=== PATIENT | male | born 1945 | race Caucasian/White ===

== ENCOUNTER 2016-10-05 12:02 | Outpatient (CLI) | payer OTHER | END 2016-10-05 12:03 | disposition critical access hospital (66) | LOC: EMS 12:02 | PROVIDERS: ATTEND Surgery | DX: R53.1 Weakness (principal); R29.810 Facial weakness; R47.81 Slurred speech | CPT/HCPCS: A0425; A0429 ==

== ENCOUNTER 2016-10-05 12:13 | Inpatient (IN) | payer OTHER, MEDICARE ==
--- NOTE | 2016-10-05 12:23 | ED Physician Documentation ---
PD HPI FOCAL NEURO - Stated complaint Stated Complaint: AMS - Chief complaint Chief Complaint: Neuro - History obtained from History obtained from: Patient, EMS - History of Present Illness Timing - onset: Other (He woke up at 5 a.m. unable to use the right arm. He went to bed okay around 10 p.m. It is not associated with a headache. He is right-handed. He is healthy otherwise with no history of heart or neurologic problem, he does not take aspirin. He doesn't take any medications. He is able to walk with assistance at this juncture.) Review of Systems Ten Systems: 10 systems reviewed and negative Constitutional: denies: Fever, Chills Eyes: denies: Loss of vision, Decreased vision Throat: denies: Dental pain / toothache, Sore throat Cardiac: denies: Chest pain / pressure, Palpitations Respiratory: denies: Dyspnea PD PAST MEDICAL HISTORY - Past Medical History Past Medical History: No - Present Medications Home Medications: Ambulatory Orders Medication Instructions Recorded Confirmed No Known Home Medications [No 10/05/16 10/05/16 Known Home Medications] - Allergies Allergies/Adverse Reactions: Allergies Allergy/AdvReac Type Severity Reaction Status Date / Time No Known Drug Allergies Allergy Verified 10/05/16 12:16 - Living Situation Living Arrangement: reports: At home - Social History Does the pt smoke?: Yes Does the pt drink ETOH?: No Does the pt have substance abuse?: No - Family History Family history: reports: Non contributory PD ED PE NORMAL - Vitals Vital signs reviewed: Yes - General General: Alert and oriented X 3, No acute distress - HEENT HEENT: PERRL, EOMI - Neck Neck: Supple, no meningeal sign, No bony TTP - Cardiac Cardiac: RRR, No murmur - Respiratory Respiratory: No respiratory distress, Clear bilaterally - Abdomen Abdomen: Soft, Non tender - Back Back: No CVA TTP, No spinal TTP - Derm Derm: Normal color, Warm and dry - Extremities Extremities: No edema, No calf tenderness / cord - Neuro Neuro: Alert and oriented X 3, Normal speech - Psych Psych: Normal mood, Normal affect NIHSS - Time Time: 12:17 - Level of Consciousness Level of consciousness: (0) Alert, Keenly responsive LOC Questions: (0) Answers both Q's correct LOC Commands: (0) Performs both correctly - Gaze Best Gaze: (0) Normal - Visual Visual: (0) No loss - Facial Palsy Facial Palsy: (2) Partial paralysis - Motor Arms (both separate) Motor Arm (right): (4) No movement Motor Arm (left): (0) No drift - Motor Legs (both separate) Motor Leg (right): (0) No drift Motor Leg (left): (0) No drift - Limb Ataxia Limb Ataxia: (0) Absent - Sensory Sensory: (1) Wxlf-kv-hnuuspki loss - Best Language Best Language: (0) No aphasia - Dysarthria Dysarthria: (1) Gwmb-ex-vwbrgwvd dysarthria - Extinction and Inattention (formally neg Extinction and inattention: (0) No abnormality - Total Score/Results Total Score/Result: 8 Results - Vitals Vitals: Vital Signs - 24 hr 10/05/16 10/05/16 12:15 13:08 Temperature 37.2 C Heart Rate 73 72 Respiratory 18 18 Rate Blood Pressure 158/92 H 148/86 H O2 Saturation 98 98 Oxygen O2 Source Room air - EKG (time done) 1220 Rate: Rate (enter#) (67) Rhythm: NSR Jerome: Normal Intervals: Normal ME QRS: Normal Ischemia: Normal ST segments Computer interpretation: Agree with computer - Labs Labs: Laboratory Tests 10/05/16 10/05/16 10/05/16 12:19 12:19 12:19 WBC 6.5 RBC 4.71 Hgb 14.7 Hct 43.5 MCV 92.3 MCH 31.1 H MCHC 33.7 RDW 13.9 Plt Count 226 MPV 7.8 Neut # 4.4 Lymph # 1.6 Metcalfe # 0.4 Eos # 0.0 Baso # 0.1 Absolute Nucleated RBC 0.00 Nucleated RBCs 0.0 PT 11.6 INR 1.0 Sodium 138 Potassium 4.3 Chloride 107 Carbon Dioxide 25 Anion Gap 6.0 BUN 17 Creatinine 0.8 Estimated GFR (MDRD) 96 Glucose 105 H Calcium 8.6 Total Bilirubin 0.3 AST 18 ALT 14 Alkaline Phosphatase 73 Total Protein 6.6 L Albumin 3.8 Globulin 2.8 Albumin/Globulin Ratio 1.4 Lipase 21 L PD MEDICAL DECISION MAKING - ED course ED course: 70-year-old gentleman presents with a stroke, and a stroke scale as shown, initially reported to started at 5 a.m. The family later reported that maybe he was using his right arm at 8, but they weren't 100% sure about that. Either way he is not a TPA candidate because last known normal was not definitively less than [address] was grossly negative for acute changes. Spoke with Dr. Manriquez for admission at 130 p.m. He was administered aspirin. Departure - Departure Disposition: ED Place in Observation Clinical Impression: Cerebrovascular accident (CVA) Qualifiers: CVA mechanism: unspecified Qualified Code(s): I63.9 - Cerebral infarction, unspecified Condition: Stable
[2016-10-05 12:38] LABS: BASOPHILS # (AUTO) 0.1 10^3/uL (0.0-0.1); EOSINOPHILS % (AUTO) 0.5 %; HCT - HEMATOCRIT 43.5 % (42.0-52.0); HGB - HEMOGLOBIN 14.7 g/dL (14.0-18.0); LYMPHOCYTES # (AUTO) 1.6 10^3/uL (1.5-3.5); LYMPHOCYTES % (AUTO) 24.8 %; MEAN CORPUSCULAR HEMOGLOBIN 31.1 pg (27.0-31.0); MEAN CORPUSCULAR HGB CONC 33.7 g/dL (32.0-36.0); MEAN CORPUSCULAR VOLUME 92.3 fL (80.0-94.0); MEAN PLATELET VOLUME 7.8 fL (7.4-11.4); MONOCYTES # (AUTO) 0.4 10^3/uL (0.0-1.0); MONOCYTES % (AUTO) 5.6 %; NEUTROPHILS # (AUTO) 4.4 10^3/uL (1.5-6.6); NEUTROPHILS % (AUTO) 68.1 %; RED BLOOD COUNT 4.71 10^6/uL (4.70-6.10); RED CELL DISTRIBUTION WIDTH 13.9 % (12.0-15.0); UNCORRECTED WHITE BLOOD COUNT 6.5 x10^3/uL; WHITE BLOOD COUNT 6.5 x10^3/uL (4.8-10.8)
[2016-10-05 12:47] LABS: PT - PROTHROMBIN TIME 11.6 secs (9.9-12.6)
[2016-10-05 12:52] LABS: ALBUMIN/GLOBULIN RATIO 1.4 (1.0-2.2); BILIRUBIN,TOTAL 0.3 mg/dL (0.2-1.0); CALCIUM 8.6 mg/dL (8.5-10.3); CREATININE 0.8 mg/dL (0.6-1.2); POTASSIUM 4.3 mmol/L (3.5-5.0); TOTAL PROTEIN 6.6 g/dL (6.7-8.2)
--- NOTE | 2016-10-05 13:20 | CT Preliminary Report ---
Exam: CT Head W/O Impression: No evidence of an intracranial hemorrhage. Calcification in the right frontal lobe. Decreased density in the periventricular white matter that is nonspecific but most likely represents ischemic changes. Atherosclerosis of the internal carotid and vertebral arteries. [facility] SITE ID: [id number]
--- NOTE | 2016-10-05 13:23 | CT Report ---
EXAM: CT HEAD EXAM DATE: 10/05/2016 12:40 PM. CLINICAL HISTORY: CVA with RUE defecit. COMPARISON: None. TECHNIQUE: Multiaxial CT images were obtained from the foramen magnum to the vertex. IV contrast: Non e. Reformats: Coronal. In accordance with CT protocol optimization, one or more of the following dose reduction techniques w ere utilized for this exam: automated exposure control, adjustment of mA and/or KV based on patient s ize, or use of iterative reconstructive technique. FINDINGS: The ventricles and cortical sulci are normal in appearance. Calcifications are noted within the right frontal lobe (image 16 of series 3). Decreased density is seen in the periventricular white matter t hat is nonspecific but most likely represents ischemic changes. There is no evidence of an intraparen chymal hemorrhage or extra-axial fluid collection. There is atherosclerosis of the internal carotid a nd vertebral arteries. Orbits are symmetric. No depressed skull fracture is seen. The visualized mastoid air cells and paranasal sinuses are clear . Impression: No evidence of an intracranial hemorrhage. Calcification in the right frontal lobe. Decreased density in the periventricular white matter that is nonspecific but most likely represents ischemic changes. Atherosclerosis of the internal carotid and vertebral arteries. [facility] Referring Provider Line: [phone] SITE ID: [id number]
[2016-10-05] MEDS ORDERED: ASPIRIN CHEW 81 MG TABLET PO STA (13:28)
[2016-10-05] MEDS ORDERED: ASPIRIN CHEW 81 MG TABLET ONE (13:30)
[2016-10-05] MEDS ORDERED: MORPHINE 2 MG/ML SYRINGE IVP PRN ×2 (13:38→14:49)
[2016-10-05] MEDS ORDERED: LABETALOL 20 MG/4 ML SYRINGE IVP PRN ×2 (13:38→14:49)
[2016-10-05] MEDS ORDERED: SODIUM CHLORIDE FLUSH 0.9% 10 ML SYRINGE IVP PRN ×2 (13:38→14:49)
[2016-10-05] MEDS ORDERED: HYDROcod/ACETAM 5/325 MG TABLET PO PRN ×2 (13:38→14:49)
[2016-10-05] MEDS ORDERED: PROCHLORPERAZINE 10 MG/2 ML VIAL IVP PRN ×2 (13:38→14:49)
[2016-10-05] MEDS ORDERED: ACETAMINOPHEN 325 MG TABLET PO PRN ×2 (13:38→14:49)
[2016-10-05] MEDS ORDERED: ONDANSETRON 4 MG/2 ML VIAL IVP PRN ×2 (13:38→14:49)
[2016-10-05] MEDS ORDERED: SODIUM CHLORIDE FLUSH 0.9% 10 ML SYRINGE IVP SCH (14:00)
[2016-10-05] MEDS ORDERED: SODIUM CHLORIDE 0.9% 1,000 ML IV SCH (14:00)
--- NOTE | 2016-10-05 15:30 | HISTORY & PHYSICAL EXAMINATION ---
Chief Complaint - Chief Complaint Chief Complaint: Right arm weakness History of Present Illness - Admitted From Admitted From:: emergency department - History Obtained From Records Reviewed: yes History obtained from: patient and family Exam Limitations: none - History of Present Illness HPI Comment/Other: Patient is a 70-year-old gentleman with a past medical history significant for borderline diabetes, vitamin D deficiency, cataracts and tobacco abuse who presents to the emergency department with a chief complaint of right arm weakness. The patient states he was in his normal state of health when he went to bed last night. He states he got up this morning at around 5 AM, he states that he had slept on his right arm and felt as though it was numb. He states he got up to go to the bathroom and got about half way to the bathroom when he lost his balance and fell to the floor. He states he was able to get up and go crawl back into the bed. The patient's daughter states that she saw the patient at 8 AM after she got back from work and she states that he was stretching his arms but when she said good morning he just gave her blank stare. The patient's states that she went to wake up the patient at around 10:30. She states he was sitting in the bed and just staring off she noted that he could not move his right arm and had an obvious right facial droop at that point she decided to call 911 if she was concerned he was having a stroke. When the patient tried to get up he was favoring his right side and fell again towards his right side. The patient otherwise denies any fevers or chills, he denies any headache, he denies blurred vision, denies any runny nose, sore throat, cough, nasal congestion, chest durga,n shortness of breath, abdominal pain, nausea, vomiting, diarrhea or constipation, he denies any urinary urgency, frequency or dysuria he also denies any back pain or muscle aches. On presentation to the emergency department the patient was afebrile slightly hypertensive otherwise vital signs are within normal limits. The patient underwent routine labs his CBC was normal and electrolyte are within normal limits. The patient's EKG showed normal sinus rhythm with no ST elevations or ischemic changes. Patient's CT head showed no evidence of acute intracranial hemorrhage there was calcification in the right frontal lobe and decreased density in the periventricular white matter that is nonspecific but most likely represents ischemic changes. The patient was placed in observation for a likely stroke and possible TIA he will get an MRI to confirm whether he's had a stroke. Review of Systems - Constitutional Constitutional: denies: Fatigue, Fever, Chills, Malaise, Weakness, Poor appetite , Diaphoresis, Night sweats, Weight gain, Weight loss, Other - Eyes Eyes: denies: Pain, Irritation, Amaurosis, Blurred vision, Spots in vision, Field loss, Vision loss, Dipolpia, Corrective lenses, Other - Ears, Nose & Throat Ears, Nose & Throat: denies: Ear pain, Hearing loss, Hearing aids, Tinnitus, Vertigo, Nasal pain, Nasal discharge, Nosebleeds, Nasal obstruction, Nasal congestion, Postnasal drainage, Dentures, Sore throat, Hoarseness, Mouth lesions , Bleeding gums, Dental decay, Dental pain, Other - Cardiovascular Cariovascular: denies: Irregular heart rate, Palpitations, Chest pain, Edema, Lightheadedness, Syncope, Exertional dyspnea, Decr. exercise tolerance, Orthopnea, Other - Respiratory Respiratory: denies: Cough, Sputum production, Wheezing, Snoring, Hemoptysis, Orthopnea, SOB at rest, SOB with exertion, Apnea, Stridor, Pleuritic pain, Other - Gastrointestinal Gastrointestinal: denies: Abdominal pain, Abdominal distention, Constipation, Diarrhea, Change in bowel habits, Rectal bleeding, Black stools, Bloody stools, Nausea, Vomiting, Bile emesis, Alex blood emesis, Coffee grounds emesis, Reflux /heartburn, Bloating, Poor appetite, Other - Genitourinary Genitourinary: denies: Dysuria, Frequency, Urgency, Hematuria, Incontinence, Flank pain, Nocturia, Urethral discharge, Sexual dysfunction, Other - Musculoskeletal Musculoskeletal: denies: Muscle pain, Back pain, Muscle aches, Stiffness, Limited range of motion, Muscle weakness, Gout, Joint pain, Joint swelling, Other - Integumentary Integumentary: denies: Rash, Pruritis, Lesions, Dryness, Lumps, Acne, Pigment changes, Nail changes, Hair changes, Other - Neurological Neurological: reports: Focal weakness (right upper extremity paralysis and right lower extremity weakness), Numbness, Abnormal gait, Slurred speech. denies: General weakness, Headache, Dizziness, Memory problems, Seizures, Incoordination - Psychiatric Psychiatric: denies: Depression, Anxiety, Suicidal, Delusions, Hallucinations, Homicidal, Other - Hematologic/Lymphatic Hematologic/Lymphatic: denies: Anemia, Bruising, Petechiae, Blood clots, Lymphadenopathy, Bleeding tendencies, Recurrent infections, Other History - Past Medical History Cardiovascular: reports: None Respiratory: reports: None Neuro: reports: TIA Endocrine/Autoimmune: reports: Type 2 diabetes (Borderline ) GI: reports: None : reports: None HEENT: reports: Other (Cataracts) Psych: reports: None Musculoskeletal: reports: Other (Vitamin D Deficiency) Derm: reports: None MRSA Hx?: No Other Past Medical History: Tobacco Abuse - Family & Social History Family History: Mother: CVA/TIA ( at 83 of stroke), Father: Cancer (Liver) Living arrangement: At home Living Situation: With spouse/s.o. 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 He sends most of the year in [place] but his lives here on [facility] and he is back now for repair of cataracts on Wednesday. He has 3 bilogical kids and 6 step kids. He has been to his current for 20 years. - Substance History Use: Uses substance without health or social issues: Alcohol (Ocassional ) Abuse: Recurrent use of substance despite neg consequences: NONE Dependence: Experiences withdrawal or developed tolerances: Tobacco (1PPD for nearly 60 years) Tobacco Details: Cigarettes - POLST Patient has POLST: No POLST Status: DNR Meds/Allgy - Home Medications Home Medications: Ambulatory Orders Medication Instructions Recorded Confirmed No Known Home Medications [No 10/05/16 10/05/16 Known Home Medications] - Allergies Allergies/Adverse Reactions: Allergies Allergy/AdvReac Type Severity Reaction Status Date / Time No Known Drug Allergies Allergy Verified 10/05/16 12:16 Exam - Vital Signs Reviewed Vital Signs: Yes Vital Signs: Vital Signs x48h Temp Pulse Pulse Resp BP BP Pulse Ox 10/05/16 14:00 36.6 C 66 17 159/79 H 97 10/05/16 13:08 72 18 148/86 H 98 10/05/16 12:15 37.2 C 73 18 158/92 H 98 - Physical Exam General Appearance: positive: Alert, Other (Right facial droop and right arm paralysis, a lot of wrinkles) Eyes Bilateral: positive: Normal inspection, PERRL, EOMI, No lid inflammation, Conjunctivae nml, No scleral icterus ENT: positive: ENT inspection nml, Pharynx nml, No signs of dehydration, Other ( Right facial droop). negative: Purulent nasal drainage, Pharyngeal erythema, Oral lesions Neck: positive: Nml inspection, Thyroid nml, No JVD, Trachea midline. negative : Thyromegaly, Lymphadenopathy (R), Lymphadenopathy (L) Respiratory: positive: Chest non-tender, No respiratory distress, Breath sounds nml. negative: Wheezes, Rales, Rhonchi Cardiovascular: positive: Regular rate & rhythm, No murmur, No gallop Peripheral Pulses: positive: 2+ Abdomen: positive: Non-tender, No organomegaly, Nml bowel sounds, No distention. negative: Guarding, Rebound, Hepatomegaly Back: positive: Nml inspection. negative: CVA tenderness (R), CVA tenderness (L ) Skin: positive: Color nml, No rash, Warm, Other (A lot of wrinkles) Extremities: positive: Non-tender, Nml appearance, No pedal edema Neurologic/Psychiatric: positive: Oriented x3, Sensation nml, Mood/affect nml, Weakness (Right arm 0/5 strength, Hand 0/5 strength, right leg 3/5 strength, right foot 2/5 strength), Facial droop (Right mouth, assymetric smile with severe droop), Slurred/abnml speech (slurred) Conclusion/Plan - Problem List (1) Cerebrovascular accident (CVA) Conclusion/Plan: Patient presented with right sided weakness worse in the upper extremity than lower extremity and right facial droop. Patient woke up with symptoms therefore not eligible for TPA Patients risk factors were smoking and borderline diabetes Patient given ASA in the ED CT head negative for bleed Admitted for stroke will likely need inpatient stroke rehab Patient counselled on need to quit smoking Plan: Permissive Hypertension Swallow evaluation Aspirin Lipitor MRA head and neck MRI brain Echo HbA1C Lipid profile Tele Neurochecks PT eval Qualifiers: CVA mechanism: unspecified Qualified Code(s): I63.9 - Cerebral infarction, unspecified (2) Tobacco abuse Conclusion/Plan: Patient counselled on need to quit smoking States he currently has no cravings Offered nicotine patch but declined 1PPD for nearly 60 years Patient committed to quitting (3) Borderline diabetes Conclusion/Plan: Patient has been told he has borderline diabetes Blood glucose on presentation is 105 Will get A1C if elevated start on sliding scale insulin and treat (4) Cataracts, bilateral Conclusion/Plan: Scheduled for surgery on 10-07-16 Will need to cancel surgery given stroke (5) Hypertension Conclusion/Plan: Likely hypertensive on presentation secondary to acute stroke No history of hypertension Will allow for permissive hypertension for 24-48 hours Labetolol for prn for BP greater than 180 systolic - Lab Results Lab results reviewed: Yes Juanito Bones: 10/05/16 12:19 10/05/16 12:19 - Diagnostic Imaging Results Diagnostic Imaging Results: positive: Final report reviewed - EKG Results EKG Interpreted Independently: Yes EKG Findings: Normal sinus rhythm Issues/Core Measures - Anticipated LOS Anticipated Stay Length: 2 or more midnights - DVT/VTE - Prophylaxis VTE/DVT Device ordered at admit?: Yes
[2016-10-05] MEDS: SODIUM CHLORIDE 0.9% 1,000 ML IV SCH (16:57)
[2016-10-05] MEDS: SODIUM CHLORIDE FLUSH 0.9% 10 ML SYRINGE IVP SCH (16:57)
[2016-10-05] MEDS ORDERED: ATORVASTATIN 40 MG TABLET PO SCH (21:00)
[2016-10-05] MEDS: ATORVASTATIN 40 MG TABLET PO SCH (21:42)
[2016-10-06] MEDS: SODIUM CHLORIDE 0.9% 1,000 ML IV SCH ×2 (03:07→13:39)
[2016-10-06 06:02] LABS: BASOPHILS % (AUTO) 0.6 %; EOSINOPHILS % (AUTO) 0.8 %; HCT - HEMATOCRIT 42.3 % (42.0-52.0); HGB - HEMOGLOBIN 13.9 g/dL (14.0-18.0); LYMPHOCYTES # (AUTO) 1.8 10^3/uL (1.5-3.5); LYMPHOCYTES % (AUTO) 34.5 %; MEAN CORPUSCULAR HEMOGLOBIN 30.6 pg (27.0-31.0); MEAN CORPUSCULAR HGB CONC 32.8 g/dL (32.0-36.0); MEAN CORPUSCULAR VOLUME 93.4 fL (80.0-94.0); MONOCYTES # (AUTO) 0.3 10^3/uL (0.0-1.0); MONOCYTES % (AUTO) 6.5 %; NEUTROPHILS % (AUTO) 57.6 %; RED BLOOD COUNT 4.52 10^6/uL (4.70-6.10); RED CELL DISTRIBUTION WIDTH 13.5 % (12.0-15.0); UNCORRECTED WHITE BLOOD COUNT 5.2 x10^3/uL; WHITE BLOOD COUNT 5.2 x10^3/uL (4.8-10.8)
[2016-10-06 06:19] LABS: ALBUMIN/GLOBULIN RATIO 1.6 (1.0-2.2); BILIRUBIN,TOTAL 0.8 mg/dL (0.2-1.0); BUN - BLOOD UREA NITROGEN 14 mg/dL (6-20); CALCIUM 8.5 mg/dL (8.5-10.3); CARBON DIOXIDE - CO2 22 mmol/L (21-32); CHLORIDE 111 mmol/L (101-111); CHOL/HDL RATIO 6.2 (<5.0); CHOLESTEROL 174 mg/dL; CREATININE 0.6 mg/dL (0.6-1.2); GFR - MDRD 134 (>89); GLUCOSE 72 mg/dL (70-100); HDL CHOLESTEROL 28 mg/dL; LDL/HDL RATIO 4.8 (<3.6); SODIUM 139 mmol/L (135-145); TOTAL PROTEIN 5.9 g/dL (6.7-8.2); TRIGLYCERIDES 57 mg/dL; VLDL CHOLESTEROL 11 mg/dL
[2016-10-06 06:25] LABS: HEMOGLOBIN A1C 0.59 g/dL
[2016-10-06] MEDS: PANTOPRAZOLE 40 MG TABLET PO SCH (06:55)
[2016-10-06] MEDS: SODIUM CHLORIDE FLUSH 0.9% 10 ML SYRINGE IVP SCH ×3 (06:57→22:42)
[2016-10-06] MEDS ORDERED: PANTOPRAZOLE 40 MG TABLET PO SCH (07:00)
[2016-10-06] MEDS: ASPIRIN 325 MG TABLET PO SCH (07:47)
[2016-10-06] MEDS: POLYETHYLENE GLYCOL 3350 17 GM PACKET PO SCH (07:47)
[2016-10-06] MEDS ORDERED: ASPIRIN 325 MG TABLET PO SCH (08:00)
[2016-10-06] MEDS ORDERED: POLYETHYLENE GLYCOL 3350 17 GM PACKET PO SCH (09:00)
[2016-10-06] MEDS ORDERED: GADOBUTROL 7.5 MMOL/7.5 ML VIAL IVP ONE (12:27)
--- NOTE | 2016-10-06 13:20 | MRI Preliminary Report ---
Exam: MRI Brain W/O IMPRESSION: 1. An acute infarct in the region of the left coronal radiata, also involving the posterior left puta men and posterior limb of the left internal capsule, likely 24 hours to less than 1 week old. The max imal transverse dimension is 2.4 x 1.1 cm (series 505 image 120). No MRI evidence of hemorrhagic gray sformation at this time. 2. Extensive T2/FLAIR hyperintense white matter lesions in the periventricular, deep, and subcortical white matter of bilateral cerebral hemispheres. While nonspecific, this likely represents sequela of chronic microangiopathy. The ordering provider was paged at the time of this dictation. [facility] SITE ID: [id number]
--- NOTE | 2016-10-06 13:23 | MRI Report ---
EXAM: MRI BRAIN WITHOUT CONTRAST EXAM DATE: 10/06/2016 11:51 AM. CLINICAL HISTORY: Right facial droop and right UE weakness. COMPARISON: CT head 10/05/2016 TECHNIQUE: Multiplanar, multisequence T1-weighted and fluid-sensitive MR sequences of the brain were performed. Sequences optimized for routine evaluation. Other: None. IV Contrast: None. FINDINGS: Brain Volume: Normal for age. Parenchyma/Dura: Restricted diffusion and associated FLAIR signal abnormality seen in the region of t he left coronal radiata, also involving the posterior left putamen and posterior limb of the left int ernal capsule. The maximal transverse dimension is 2.4 x 1.1 cm (series 505 image 120). This is consi stent with an acute infarct. Extensive T2/FLAIR hyperintense white matter lesions in the periventricu lar, deep, and subcortical white matter of bilateral cerebral hemispheres. No parenchymal microhemorr hages. Ventricles/Cisterns: Normal. No hydrocephalus. Sinuses: Normal. No sinusitis evident. Bones: Normal. Other: None. IMPRESSION: 1. An acute infarct in the region of the left coronal radiata, also involving the posterior left puta men and posterior limb of the left internal capsule, likely 24 hours to less than 1 week old. The max imal transverse dimension is 2.4 x 1.1 cm (series 505 image 120). No MRI evidence of hemorrhagic gray sformation at this time. 2. Extensive T2/FLAIR hyperintense white matter lesions in the periventricular, deep, and subcortical white matter of bilateral cerebral hemispheres. While nonspecific, this likely represents sequela of chronic microangiopathy. The ordering provider was paged at the time of this dictation. [facility] Referring Provider Line: [phone] SITE ID: [id number]
--- NOTE | 2016-10-06 13:25 | MRI Preliminary Report ---
Exam: MRI Angio Brain W/O (MRA) IMPRESSION: 1. No hemodynamically significant stenosis, dissection, occlusion, aneurysm, or vascular malformation within intracranial arteries. 2. The posterior communicating arteries are not visualized on either side, likely hypoplastic or apla stic. [facility] SITE ID: [id number]
--- NOTE | 2016-10-06 13:27 | MRI Report ---
EXAM MRA BRAIN EXAM DATE: 10/06/2016 11:41 AM. CLINICAL HISTORY: Right facial droop and right arm weakness. COMPARISON: MRI brain obtained concurrently TECHNIQUE: Multiplanar, multisequence MRA sequences of the brain were performed. Other: None. Post-pr ocessing: Multiplanar 3D MIP reconstructions. IV Contrast: None. FINDINGS: RIGHT Internal Carotid (ICA): No aneurysm, stenosis or anomaly. Middle Cerebral (MCA): No aneurysm, stenosis or anomaly. Anterior Cerebral (PAWAN): No aneurysm, stenosis or anomaly. Posterior Cerebral (ARTIST AGENT): No aneurysm, stenosis or anomaly. Posterior Communicating (P-COM): Not visualized, likely hypoplastic or aplastic. Vertebral: No aneurysm, stenosis or anomaly in the visualized upper vertebral artery. LEFT Internal Carotid (ICA): No aneurysm, stenosis or anomaly. Middle Cerebral (MCA): No aneurysm, stenosis or anomaly. Anterior Cerebral (PAWAN): No aneurysm, stenosis or anomaly. Posterior Cerebral (ARTIST AGENT): No aneurysm, stenosis or anomaly. Posterior Communicating (P-COM): Not visualized, likely hypoplastic or aplastic. Vertebral: No aneurysm, stenosis or anomaly in the visualized upper vertebral artery. MIDLINE Anterior Communicating (A-COM): No aneurysm, stenosis or anomaly. Other: None. IMPRESSION: 1. No hemodynamically significant stenosis, dissection, occlusion, aneurysm, or vascular malformation within intracranial arteries. 2. The posterior communicating arteries are not visualized on either side, likely hypoplastic or apla stic. [facility] Referring Provider Line: [phone] SITE ID: [id number]
--- NOTE | 2016-10-06 13:31 | MRI Preliminary Report ---
Exam: MRI Angio Neck W/WO (MRA) IMPRESSION: 1. No hemodynamically significant stenosis, dissection, occlusion, aneurysm, or vascular malformation involving the extracranial arteries. Evaluation of carotid stenosis is by NASCET criteria . 2. MRA head is dictated separately. [facility] SITE ID: [id number]
--- NOTE | 2016-10-06 13:34 | MRI Report ---
EXAM: MR ANGIOGRAM NECK EXAM DATE: 10/06/2016 12:21 PM. CLINICAL HISTORY: Right facial droop and right arm weakness. COMPARISON: None. TECHNIQUE: Multiplanar, multisequence MRA sequences of the neck were performed. Other: None. Post-pro cessing: Multiplanar 3D MIP reconstructions. IV Contrast: Without and with. 7 mL Gadavist Evaluation of arterial stenosis is based on a NASCET method of measurement. FINDINGS: RIGHT Common Carotid: Patent. No dissection or significant stenosis. Internal Carotid: Patent. No dissection or significant stenosis. External Carotid: Patent. No dissection or significant stenosis. Vertebral: Patent. No dissection or significant stenosis. LEFT Common Carotid: Patent. No dissection or significant stenosis. Internal Carotid: Patent. No dissection or significant stenosis. External Carotid: Patent. No dissection or significant stenosis. Vertebral: The left vertebral artery is dominant. Patent. No dissection or significant stenosis. Intracranial Circulation: MRA head is dictated separately. Other: The soft tissues, bones, and lung apices are within normal limits. IMPRESSION: 1. No hemodynamically significant stenosis, dissection, occlusion, aneurysm, or vascular malformation involving the extracranial arteries. Evaluation of carotid stenosis is by NASCET criteria . 2. MRA head is dictated separately. [facility] Referring Provider Line: [phone] SITE ID: [id number]
--- NOTE | 2016-10-06 14:41 | PROVIDER PROGRESS NOTE ---
Assessment/Plan - Problem List (1) Cerebrovascular accident (CVA) Qualifiers: CVA mechanism: unspecified Qualified Code(s): I63.9 - Cerebral infarction, unspecified Assessment/Plan: Quyen stroke is in the L rajan radiata and internal capsule. He has been eval by PT and OT. Speech and a swallow eval has not been completed. He meets criteria for Acute inpatient rehab. Will consult Discharge planning for possible facilities. (2) Hypertension Assessment/Plan: During the first 48 hours will continue permissive HTN of <220 - Current Meds Current Meds: Current Medications Generic Name Dose Route Start Last Admin Trade Name Freq PRN Reason Stop Dose Admin Aspirin 325 mg 10/06/16 08:00 10/06/16 07:47 Timothy PO 325 mg DAILYWM LARRY Administration Atorvastatin Calcium 80 mg 10/05/16 21:00 10/05/16 21:42 Lipitor PO 80 mg QPM LARRY Administration Sodium Chloride 1,000 mls @ 100 mls/hr 10/05/16 15:00 10/06/16 13:39 Normal Saline 0.9% IV 100 mls/hr .Q10H LARRY Administration Pantoprazole Sodium 40 mg 10/06/16 07:00 10/06/16 06:55 Protonix PO 40 mg QDAC LARRY Administration Polyethylene Glycol 17 gm 10/06/16 09:00 10/06/16 07:47 Miralax PO Not Given DAILY LARRY Sodium Chloride 10 ml 10/05/16 15:00 10/06/16 07:48 Normal Saline Flush 0.9% IVP Not Given Q8HR LARRY - Lab Result Fish Bone Diagrams: 10/06/16 05:20 10/06/16 05:20 Subjective - Subjective Patient Reports: Resting Comfortably, Other (R arm very weak) Objective Vital Signs: Vital Signs - 24 hr 10/05/16 10/05/16 10/06/16 16:00 22:00 00:57 Temperature 36.6 C 36.8 C 36.5 C Heart Rate [ Activity] Heart Rate [ 65 73 68 Brachial] Respiratory 18 18 18 Rate Blood Pressure [Activity] Blood Pressure 141/80 H 152/84 H 146/72 H [Right Brachial artery] O2 Saturation 99 98 95 10/06/16 10/06/16 10/06/16 04:50 09:40 10:25 Temperature 36.6 C 36.6 C Heart Rate [ 85 Activity] Heart Rate [ 74 76 Brachial] Respiratory 16 18 Rate Blood Pressure 138/83 H [Activity] Blood Pressure 136/68 H 152/79 H [Right Brachial artery] O2 Saturation 97 97 10/06/16 10/06/16 10:40 13:48 Temperature 36.6 C Heart Rate [ 85 Activity] Heart Rate [ 66 Brachial] Respiratory 14 Rate Blood Pressure 138/83 H [Activity] Blood Pressure 138/75 H [Right Brachial artery] O2 Saturation 96 Oxygen O2 Source Room air I&O (Last 24 Hrs): Intake and Output Totals x24h 10/04/16 10/05/16 10/06/16 23:59 23:59 23:59 Intake Total 471 1150 Output Total 300 400 Balance 171 750 General: Alert, Oriented x3 HEENT: PERRLA, EOMI Neck: No JVD, No thyromegaly Neuro: Alert, Focal Deficits Cardiovascular: Regular rate, No murmurs Respiratory: Chest non-tender, No respiratory distress Abdomen: Soft, No tenderness Extremities: No clubbing, No edema - Results Results: Laboratory Results WBC 5.2 x10^3/uL (4.8-10.8) 10/06/16 05:20 RBC 4.52 10^6/uL (4.70-6.10) L 10/06/16 05:20 Hgb 13.9 g/dL (14.0-18.0) L 10/06/16 05:20 Hct 42.3 % (42.0-52.0) 10/06/16 05:20 MCV 93.4 fL (80.0-94.0) 10/06/16 05:20 MCH 30.6 pg (27.0-31.0) 10/06/16 05:20 MCHC 32.8 g/dL (32.0-36.0) 10/06/16 05:20 RDW 13.5 % (12.0-15.0) 10/06/16 05:20 Plt Count 216 10^3/uL (130-450) 10/06/16 05:20 MPV 8.0 fL (7.4-11.4) 10/06/16 05:20 Neut # 3.0 10^3/uL (1.5-6.6) 10/06/16 05:20 Lymph # 1.8 10^3/uL (1.5-3.5) 10/06/16 05:20 [place] # 0.3 10^3/uL (0.0-1.0) 10/06/16 05:20 Eos # 0.0 10^3/uL (0.0-0.7) 10/06/16 05:20 Baso # 0.0 10^3/uL (0.0-0.1) 10/06/16 05:20 Absolute Nucleated RBC 0.00 x10^3/uL 10/06/16 05:20 Nucleated RBCs 0.0 /100WBC 10/06/16 05:20 PT 11.6 secs (9.9-12.6) 10/05/16 12:19 INR 1.0 (0.8-1.2) 10/05/16 12:19 Sodium 139 mmol/L (135-145) 10/06/16 05:20 Potassium 4.0 mmol/L (3.5-5.0) 10/06/16 05:20 Chloride 111 mmol/L (101-111) 10/06/16 05:20 Carbon Dioxide 22 mmol/L (21-32) 10/06/16 05:20 Anion Gap 6.0 (6-13) 10/06/16 05:20 BUN 14 mg/dL (6-20) 10/06/16 05:20 Creatinine 0.6 mg/dL (0.6-1.2) 10/06/16 05:20 Estimated GFR (MDRD) 134 (>89) 10/06/16 05:20 Glucose 72 mg/dL (70-100) 10/06/16 05:20 Glycated Hemoglobin 5.8 % (4.6-6.2) 10/06/16 05:20 Estim Average Glucose 120 (70-100) H 10/06/16 05:20 Calcium 8.5 mg/dL (8.5-10.3) 10/06/16 05:20 Ionized Calcium NO 10/06/16 05:20 Total Bilirubin 0.8 mg/dL (0.2-1.0) 10/06/16 05:20 AST 19 IU/L (10-42) 10/06/16 05:20 ALT 13 IU/L (10-60) 10/06/16 05:20 Alkaline Phosphatase 68 IU/L (42-121) 10/06/16 05:20 Total Protein 5.9 g/dL (6.7-8.2) L 10/06/16 05:20 Albumin 3.6 g/dL (3.2-5.5) 10/06/16 05:20 Globulin 2.3 g/dL (2.1-4.2) 10/06/16 05:20 Albumin/Globulin Ratio 1.6 (1.0-2.2) 10/06/16 05:20 Triglycerides 57 mg/dL (-149) 10/06/16 05:20 Cholesterol 174 mg/dL (-199) 10/06/16 05:20 LDL Cholesterol, Calc 135 mg/dL (-129) H 10/06/16 05:20 VLDL Cholesterol 11 mg/dL 10/06/16 05:20 HDL Cholesterol 28 mg/dL (60-) L 10/06/16 05:20 LDL/HDL Ratio 4.8 (<3.6) 10/06/16 05:20 Cholesterol/HDL Ratio 6.2 (<5.0) 10/06/16 05:20 Lipase 21 U/L (22-51) L 10/05/16 12:19
[2016-10-06] MEDS: ATORVASTATIN 40 MG TABLET PO SCH (20:26)
[2016-10-07] MEDS: SODIUM CHLORIDE 0.9% 1,000 ML IV SCH ×4 (02:15→21:47)
[2016-10-07 06:06] LABS: BASOPHILS % (AUTO) 0.5 %; EOSINOPHILS % (AUTO) 0.6 %; HCT - HEMATOCRIT 41.1 % (42.0-52.0); HGB - HEMOGLOBIN 13.6 g/dL (14.0-18.0); LYMPHOCYTES # (AUTO) 1.7 10^3/uL (1.5-3.5); MEAN CORPUSCULAR HEMOGLOBIN 30.5 pg (27.0-31.0); MEAN CORPUSCULAR HGB CONC 33.1 g/dL (32.0-36.0); MEAN CORPUSCULAR VOLUME 92.4 fL (80.0-94.0); MEAN PLATELET VOLUME 7.8 fL (7.4-11.4); MONOCYTES # (AUTO) 0.5 10^3/uL (0.0-1.0); NEUTROPHILS % (AUTO) 68.9 %; NUCLEATED RED BLOOD CELLS AUTO 0.2 /100WBC; RED BLOOD COUNT 4.44 10^6/uL (4.70-6.10); RED CELL DISTRIBUTION WIDTH 13.5 % (12.0-15.0); UNCORRECTED WHITE BLOOD COUNT 7.2 x10^3/uL; WHITE BLOOD COUNT 7.2 x10^3/uL (4.8-10.8)
[2016-10-07] MEDS: PANTOPRAZOLE 40 MG TABLET PO SCH (06:07)
[2016-10-07 06:15] LABS: ALBUMIN/GLOBULIN RATIO 1.3 (1.0-2.2); BILIRUBIN,TOTAL 0.9 mg/dL (0.2-1.0); BUN - BLOOD UREA NITROGEN 12 mg/dL (6-20); CALCIUM 8.2 mg/dL (8.5-10.3); CARBON DIOXIDE - CO2 21 mmol/L (21-32); CHLORIDE 108 mmol/L (101-111); CREATININE 0.7 mg/dL (0.6-1.2); GFR - MDRD 112 (>89); GLUCOSE 79 mg/dL (70-100); POTASSIUM 3.9 mmol/L (3.5-5.0); SODIUM 136 mmol/L (135-145); TOTAL PROTEIN 5.7 g/dL (6.7-8.2)
[2016-10-07 06:20] LABS: CALCIUM, IONIZED 1.12 mmol/L (1.15-1.33); VBG PH 7.379 (7.31-7.41)
[2016-10-07] MEDS: ASPIRIN 325 MG TABLET PO SCH (08:45)
[2016-10-07] MEDS: POLYETHYLENE GLYCOL 3350 17 GM PACKET PO SCH (08:46)
[2016-10-07] MEDS: SODIUM CHLORIDE FLUSH 0.9% 10 ML SYRINGE IVP SCH ×3 (08:47→20:47)
--- NOTE | 2016-10-07 14:39 | PROVIDER PROGRESS NOTE ---
Assessment/Plan - Problem List (1) Cerebrovascular accident (CVA) Qualifiers: CVA mechanism: unspecified Qualified Code(s): I63.9 - Cerebral infarction, unspecified Assessment/Plan: Pawel has gained a small measure in his R sided function. Physical therapy repots improved cueing and lower extremity function in ambulation. (2) Hypertension Assessment/Plan: His SBP is in the 150s. will continue to monitor. now past the 48 hr permissive HTN. - Current Meds Current Meds: Current Medications Generic Name Dose Route Start Last Admin Trade Name Freq PRN Reason Stop Dose Admin Acetaminophen/Hydrocodone Bitart 1 tab 10/05/16 14:49 10/06/16 20:26 [place] 5/325 PO 1 tab Q4HR PRN Administration Pain 5 to 7 Aspirin 325 mg 10/06/16 08:00 10/07/16 08:45 Timothy PO 325 mg DAILYWM LARRY Administration Atorvastatin Calcium 80 mg 10/05/16 21:00 10/06/16 20:26 Lipitor PO 80 mg QPM LARRY Administration Sodium Chloride 1,000 mls @ 100 mls/hr 10/05/16 15:00 10/07/16 12:17 Normal Saline 0.9% IV 100 mls/hr .Q10H LARRY Administration Pantoprazole Sodium 40 mg 10/06/16 07:00 10/07/16 06:07 Protonix PO 40 mg QDAC LARRY Administration Polyethylene Glycol 17 gm 10/06/16 09:00 10/07/16 08:46 Miralax PO 17 gm DAILY LARRY Administration Sodium Chloride 10 ml 10/05/16 15:00 10/07/16 12:17 Normal Saline Flush 0.9% IVP Not Given Q8HR LARRY - Lab Result Fish Bone Diagrams: 10/07/16 05:36 10/07/16 05:36 - Additional Planning My Orders: My Active Orders 10/06/16 Dinner Dysphagia Mechanically Altered Diet [DIET] Subjective - Subjective Patient Reports: Resting Comfortably Nursing Reports: No Complaints Objective Vital Signs: Vital Signs - 24 hr 10/06/16 10/06/16 10/07/16 15:35 22:00 01:03 Temperature 36.6 C 37.0 C 36.7 C Heart Rate [ 66 61 70 Brachial] Respiratory 16 16 18 Rate Blood Pressure 149/80 H [Left Brachial artery] Blood Pressure 165/89 H 144/73 H [Right Brachial artery] O2 Saturation 94 97 97 10/07/16 10/07/16 08:24 08:25 Temperature 36.7 C 36.7 C Heart Rate [ 60 60 Brachial] Respiratory 19 19 Rate Blood Pressure 153/75 H 153/75 H [Left Brachial artery] Blood Pressure [Right Brachial artery] O2 Saturation 98 98 Oxygen O2 Source Room air I&O (Last 24 Hrs): Intake and Output Totals x24h 10/05/16 10/06/16 10/07/16 23:59 23:59 23:59 Intake Total 471 1250 1780 Output Total 579 684 5811 Balance 171 450 605 General: Alert, No acute distress HEENT: PERRLA, EOMI Neck: No JVD, No thyromegaly Neuro: Alert, Focal Deficits Cardiovascular: Regular rate, No murmurs Respiratory: Chest non-tender, Breath sounds nml Abdomen: Normal bowel sounds, Soft, No tenderness Extremities: No clubbing, No edema, Normal pulses Skin: No rashes - Results Results: Laboratory Results WBC 7.2 x10^3/uL (4.8-10.8) 10/07/16 05:36 RBC 4.44 10^6/uL (4.70-6.10) L 10/07/16 05:36 Hgb 13.6 g/dL (14.0-18.0) L 10/07/16 05:36 Hct 41.1 % (42.0-52.0) L 10/07/16 05:36 MCV 92.4 fL (80.0-94.0) 10/07/16 05:36 MCH 30.5 pg (27.0-31.0) 10/07/16 05:36 MCHC 33.1 g/dL (32.0-36.0) 10/07/16 05:36 RDW 13.5 % (12.0-15.0) 10/07/16 05:36 Plt Count 214 10^3/uL (130-450) 10/07/16 05:36 MPV 7.8 fL (7.4-11.4) 10/07/16 05:36 Neut # 5.0 10^3/uL (1.5-6.6) 10/07/16 05:36 Lymph # 1.7 10^3/uL (1.5-3.5) 10/07/16 05:36 [place] # 0.5 10^3/uL (0.0-1.0) 10/07/16 05:36 Eos # 0.0 10^3/uL (0.0-0.7) 10/07/16 05:36 Baso # 0.0 10^3/uL (0.0-0.1) 10/07/16 05:36 Absolute Nucleated RBC 0.02 x10^3/uL 10/07/16 05:36 Nucleated RBCs 0.2 /100WBC 10/07/16 05:36 PT 11.6 secs (9.9-12.6) 10/05/16 12:19 INR 1.0 (0.8-1.2) 10/05/16 12:19 VBG pH 7.379 (7.31-7.41) 10/07/16 05:36 Ionized Calcium 1.12 mmol/L (1.15-1.33) L 10/07/16 05:36 Sodium 136 mmol/L (135-145) 10/07/16 05:36 Potassium 3.9 mmol/L (3.5-5.0) 10/07/16 05:36 Chloride 108 mmol/L (101-111) 10/07/16 05:36 Carbon Dioxide 21 mmol/L (21-32) 10/07/16 05:36 Anion Gap 7.0 (6-13) 10/07/16 05:36 BUN 12 mg/dL (6-20) 10/07/16 05:36 Creatinine 0.7 mg/dL (0.6-1.2) 10/07/16 05:36 Estimated GFR (MDRD) 112 (>89) 10/07/16 05:36 Glucose 79 mg/dL (70-100) 10/07/16 05:36 Glycated Hemoglobin 5.8 % (4.6-6.2) 10/06/16 05:20 Estim Average Glucose 120 (70-100) H 10/06/16 05:20 Calcium 8.2 mg/dL (8.5-10.3) L 10/07/16 05:36 Ionized Calcium YES 10/07/16 05:36 Total Bilirubin 0.9 mg/dL (0.2-1.0) 10/07/16 05:36 AST 17 IU/L (10-42) 10/07/16 05:36 ALT 13 IU/L (10-60) 10/07/16 05:36 Alkaline Phosphatase 62 IU/L (42-121) 10/07/16 05:36 Total Protein 5.7 g/dL (6.7-8.2) L 10/07/16 05:36 Albumin 3.2 g/dL (3.2-5.5) 10/07/16 05:36 Globulin 2.5 g/dL (2.1-4.2) 10/07/16 05:36 Albumin/Globulin Ratio 1.3 (1.0-2.2) 10/07/16 05:36 Triglycerides 57 mg/dL (-149) 10/06/16 05:20 Cholesterol 174 mg/dL (-199) 10/06/16 05:20 LDL Cholesterol, Calc 135 mg/dL (-129) H 10/06/16 05:20 VLDL Cholesterol 11 mg/dL 10/06/16 05:20 HDL Cholesterol 28 mg/dL (60-) L 10/06/16 05:20 LDL/HDL Ratio 4.8 (<3.6) 10/06/16 05:20 Cholesterol/HDL Ratio 6.2 (<5.0) 10/06/16 05:20 Lipase 21 U/L (22-51) L 10/05/16 12:19
[2016-10-07] MEDS: ATORVASTATIN 40 MG TABLET PO SCH (20:46)
[2016-10-08 06:30] LABS: BASOPHILS % (AUTO) 0.8 %; EOSINOPHILS % (AUTO) 0.9 %; HCT - HEMATOCRIT 41.4 % (42.0-52.0); HGB - HEMOGLOBIN 13.6 g/dL (14.0-18.0); LYMPHOCYTES # (AUTO) 1.9 10^3/uL (1.5-3.5); LYMPHOCYTES % (AUTO) 35.1 %; MEAN CORPUSCULAR HEMOGLOBIN 30.5 pg (27.0-31.0); MEAN CORPUSCULAR HGB CONC 32.9 g/dL (32.0-36.0); MEAN CORPUSCULAR VOLUME 92.8 fL (80.0-94.0); MEAN PLATELET VOLUME 7.7 fL (7.4-11.4); MONOCYTES # (AUTO) 0.4 10^3/uL (0.0-1.0); MONOCYTES % (AUTO) 7.6 %; NEUTROPHILS % (AUTO) 55.6 %; NUCLEATED RED BLOOD CELLS AUTO 0.1 /100WBC; RED BLOOD COUNT 4.46 10^6/uL (4.70-6.10); RED CELL DISTRIBUTION WIDTH 13.5 % (12.0-15.0); UNCORRECTED WHITE BLOOD COUNT 5.4 x10^3/uL; WHITE BLOOD COUNT 5.4 x10^3/uL (4.8-10.8)
[2016-10-08 06:39] LABS: ALBUMIN/GLOBULIN RATIO 1.3 (1.0-2.2); BILIRUBIN,TOTAL 0.4 mg/dL (0.2-1.0); BUN - BLOOD UREA NITROGEN 8 mg/dL (6-20); CALCIUM 8.3 mg/dL (8.5-10.3); CARBON DIOXIDE - CO2 22 mmol/L (21-32); CHLORIDE 109 mmol/L (101-111); CREATININE 0.5 mg/dL (0.6-1.2); GFR - MDRD 165 (>89); GLUCOSE 100 mg/dL (70-100); SODIUM 138 mmol/L (135-145); TOTAL PROTEIN 5.8 g/dL (6.7-8.2)
[2016-10-08 06:44] LABS: CALCIUM, IONIZED 1.13 mmol/L (1.15-1.33); VBG PH 7.415 (7.31-7.41)
[2016-10-08] MEDS: SODIUM CHLORIDE FLUSH 0.9% 10 ML SYRINGE IVP SCH ×2 (07:16→13:53)
[2016-10-08] MEDS: POLYETHYLENE GLYCOL 3350 17 GM PACKET PO SCH (07:16)
[2016-10-08] MEDS: PANTOPRAZOLE 40 MG TABLET PO SCH (07:17)
[2016-10-08] MEDS: ASPIRIN 325 MG TABLET PO SCH (07:17)
[2016-10-08] MEDS: SODIUM CHLORIDE 0.9% 1,000 ML IV SCH (07:22)
[2016-10-08] MEDS ORDERED: DOCUSATE SODIUM 250 MG CAPSULE PO SCH (09:00)
[2016-10-08] MEDS ORDERED: SENNA 8.6 MG TABLET PO SCH (09:00)
[2016-10-08 13:23] VITALS: BP 139/73
--- NOTE | 2016-10-08 15:42 | DISCHARGE SUMMARY ---
DATE OF ADMISSION: 10/05/2016 DATE OF DISCHARGE: 10/08/2016 ADMISSION DIAGNOSES: 1. Cerebrovascular accident. 2. Tobacco abuse, present smoker. 3. Borderline diabetes. 4. Cataracts bilateral. 5. Hypertension. DISCHARGE DIAGNOSES: 1. Stroke, left rajan radiata focus. 2. Tobacco abuse, no use of tobacco in the hospital and states disinterest in smoking at all going fo rward. 3. Pre-diabetes with an A1c of 5.8. 4. Cataracts bilateral requiring surgery in the near future. 5. Hypertension, permissive, followed by mild hypertension without medication. CONSULTATIONS: None. SPECIAL PROCEDURES: 1. Echocardiogram. 2. Interpretation overall left ventricular systolic function normal, ejection fraction 65 to 70%. 3. Right ventricle is normal in size and function. 4. Contrast injection of agitated saline 8 mL mixed with 1 mL was positive for an atrial shunt. 5. No hemodynamically significant cardiac valve disease noted. 6. Head CT, IMPRESSION: a. No evidence of intracranial hemorrhage. b. Calcification right frontal lobe. c. Decreased density in the periventricular white matter, nonspecific, most likely represents ischemi c changes. d. Atherosclerosed internal carotids and vertebral arteries. 7. The MRA of the brain, Impression: a. No hemodynamically significant stenosis, dissection, occlusion, aneurysm or vascular malformation with the intracranial arteries. b. Posterior communicating arteries are not visual on either side, likely hypoplastic or aplastic. 8. MRA of the neck, findings. a. No hemodynamically significant stenosis, dissection occlusion, aneurysm or vascular malformation i nvolving intracranial arteries. Evaluation carotid stenosis by NASCET criteria. b. MRA head is dictated separately. 9. The MRA of the brain, IMPRESSION: a. Acute infarct in the region of the left rajan radiata also involving the posterior left putamen a nd posterior limb of the left internal capsule, likely 24 hours to less than a week old, maximal hailey ersed dimension is 2.4 x 1.1 cm. No MRI evidence of hemorrhagic transformation at this time. b. Extensive T2 FLAIR, hyperintense white matter lesions in the periventricular deep and subcortical white matter of bilateral cerebral arteries. While nonspecific this scan represents sequelae of chron ic microangiopathy. HOSPITAL COURSE AND MANAGEMENT: The initial presentation, hospital emergency department evaluation, a nd hospitalist plans are well described in the history and physical, see copy of same. SUMMARY: The patient is a 70-year-old gentleman with a past medical history significant for borderlin e diabetes, vitamin D deficiency, cataracts, tobacco abuse and presented to the emergency department with a chief complaint of right-sided arm weakness. He went to bed at night and had no symptoms. He t hen got up at 5 in the morning and thought his arm was numb from sleeping on it. He lost his balance when he got up to go to the bathroom and fell to the floor, was able to get up and crawl back into th e bed. His daughter saw him at 8 a.m. when she got off from work, said he was stretching his arms, s aid good morning, he just gave her a blank stare. The patient was seen in the emergency department af ter being brought into the hospital by EMS. He was found to have stroke symptoms and though he had a negative head CT was admitted to the hospital. The following day he had the studies noted above and w as noted to have the profound arm weakness and less leg weakness. He able the following day to start work with Physical Therapy and found to be able to walk with a rosas-walker with close monitoring from physical therapy. He improved further the next day. His motivation and endurance were excellent. The patient had an A1c done, which showed 5.8, which is prediabetes. The patient had a lipid panel done also which showed triglycerides of 157, cholesterol 174, LDL 135, HDL 28. The patient was started on aspirin 325 mg a day and atorvastatin 80 mg a day. He had permissive hypertension the first 2 days, b ut did not have sustained blood pressures over 180. DISCHARGE: Day of discharge examination: VITAL SIGNS: He had temperature of 36.5, 51, 139/73, 20, 96 room air saturation. EYES: EOMs within normal limits, PERRL, nonicteric. MOUTH AND THROAT normal. The patient did have a swallow evaluation which recommended mechanical, soft , but thin liquids. NECK: Supple. Nontender. No lymphadenopathy, no thyromegaly. CHEST: Nontender. Symmetric. HEART: Sinus rhythm, no murmur, rubs, clicks. LUNGS: Clear, good air movement bilaterally. VASCULAR: 1+ pulses bilaterally to the posterior tibial. NEURO: Cognition intact. Motor has the deficits on the right side as noted above. LABORATORY DATA: On the day of discharge he had a white count 5.4, 13 and 41 hemoglobin and hematocri t, platelets are 209. His sodium 138, potassium is 4.0, chloride 109, CO2 22, 8 and 0.5 BUN and creat inine, glucose of 100, his calcium was 8.9, albumin 3.3 and normal liver enzymes. DISCHARGE INSTRUCTIONS: The patient was deemed an excellent candidate for inpatient rehabilitation gi lilian his deficits and his motivation and ability to participate for at least 3 hours a day of therapy. The patient was then ready for transport to [facility]. The patient's medications on his discharge and will be continued at a rehabilitation center are: 1. Aspirin 325 mg a day. 2. Atorvastatin 80 mg a day. The patient was on no other medications at home. He will need monitoring of his blood pressure to see if he needs medications. He was offered continua tion of a nicotine patch as he had been on in the hospital, but he declined, said he had no interest in smoking anymore. Time spent in collaboration with case management, nursing, discharge planning and education of the everette reis was 40 minutes and the patient this was examined on the day of discharge. JOB #: [id number] EXT JOB #:[id number]
== END 2016-10-08 14:17 | DRG 65 ==
LOC: EDUNIT# → EDBD → ED 12:13 → MS 13:38 → ED 14:29 → OBSVTOIN 15:46 → MS 17:32
PROVIDERS: ADMIT Internal Medicine; ATTEND Internal Medicine
DX: I63.9 Cerebral infarction, unspecified (principal); G81.91 Hemiplegia, unspecified affecting right dominant side; R29.810 Facial weakness; R47.1 Dysarthria and anarthria; R47.81 Slurred speech; R29.708 NIHSS score 8; F17.210 Nicotine dependence, cigarettes, uncomplicated; R73.03 Prediabetes; H26.9 Unspecified cataract; I10 Essential (primary) hypertension; E55.9 Vitamin D deficiency, unspecified; Z66 Do not resuscitate
CPT/HCPCS: 36415; 70450; 70544; 70549; 70551; 80053; 80061; 82330; 83036; 83690; 85025; 85610; 93005; 93010; 93306; 99284; 99285

== ENCOUNTER 2017-06-17 07:59 | Day surgery (SDC) | payer MEDICARE, OTHER ==
[~2017-06-17 07:59] MED LIST: BRIMONIDINE 0.2% OPHTH DROPS 5 ML ONE; TIMOLOL 0.5% OPHTH DROPS ONE
[2017-06-17] MEDS ORDERED: PROPARACAINE 0.5% OPHTH DROPS 15 ML ONE (08:35)
[2017-06-17] MEDS ORDERED: KETOROLAC 0.45% OPHTH DROPS ONE (08:35)
[2017-06-17] MEDS ORDERED: LACTATED RINGERS 500 ML IV ONE (08:38)
[2017-06-17] MEDS: PHENYLEPHRINE 2.5% OPHTH 2 ML DROPS ONE ×3 (08:40→08:50)
[2017-06-17] MEDS: CYCLOPENTOLATE 1% OPHTH DROPS 2 ML ONE ×3 (08:40→08:50)
[2017-06-17] MEDS ORDERED: MIDAZOLAM 2 MG/2 ML VIAL IVP ONE (09:30)
[2017-06-17] MEDS ORDERED: EPINEPHrine 1 MG/ML AMP IVP ONE (09:45)
[2017-06-17] MEDS ORDERED: BSS/LIDOCAINE/EPINEPHRINE 1 ML SYRINGE IO ONE ×2 (09:45)
[2017-06-17] MEDS ORDERED: TIMOLOL 0.5% OPHTH DROPS OPTH ONE (09:45)
[2017-06-17] MEDS ORDERED: CHONDR SULF/HYALURONATE SYRINGE IO ONE (09:45)
[2017-06-17] MEDS ORDERED: BRIMONIDINE 0.2% OPHTH DROPS 5 ML OPTH ONE (09:45)
[2017-06-17] MEDS ORDERED: PROPARACAINE 0.5% OPHTH DROPS 15 ML LEFTEYE ONE (09:46)
[2017-06-17] MEDS ORDERED: TRIAMCIN/MOXIFLOX/VANCO 1 ML VIAL IO ONE (09:46)
[2017-06-17 09:56] VITALS: BP 100/62
--- NOTE | 2017-06-17 10:17 | OPERATIVE REPORT ---
DATE OF SERVICE: 06/17/2017 Physician: Don Harmon MD DATE OF SURGERY: 06/17/2017 PREOPERATIVE DIAGNOSIS: Visually significant cataract, left eye. Cataract surgery was performed on the right eye on 05/27/2017. POSTOPERATIVE DIAGNOSIS: Visually significant cataract, left eye. Cataract surgery was performed on the right eye on 05/27/2017. NAME OF PROCEDURE: Phacoemulsification with posterior chamber intraocular lens implant, left eye. SURGEON: Don Harmon MD ANESTHESIA: Monitored anesthesia care. COMPLICATIONS: None. OPERATIVE INDICATIONS: This is a 71-year-old man with progressive vision loss in the left eye due to 3-4 plus nuclear sclerotic and 1+ cortical cataract. Best corrected visual acuity was 20/30 with glare to 20/60 in the left eye. INDICATIONS FOR SURGERY: Overall decrease in vision, difficulty seeing words on the computer screen, difficulty reading, difficulty seeing words and game scores on TV, difficulty seeing street signs, difficulty driving in low light or at night, difficulty driving at night because of headlights from other vehicles, difficulty with glare and bright lights in any situation, difficulty tracking a golf ball and decreased acuity with firearms. He was consented in length concerning risks and benefits of cataract surgery, after which he expressed a desire to proceed with surgery. OPERATIVE PROCEDURE: The patient was taken into OR #3, and placed under monitored anesthesia care. A surgical timeout was conducted confirming correct patient, correct procedure, and correct surgical site. He was given topical anesthesia, and then prepped and draped in the usual sterile fashion. The eye was entered at the 6 and 3 o'clock positions. Intracameral Shugarcaine was injected into the anterior chamber, followed by Viscoat. A continuous-tear curvilinear capsulorrhexis was performed. The nucleus was hydrodissected and phacoemulsified. The cortex was evacuated using automated infusion and aspiration. Provisc was injected in the capsular bag, and a 21.0 diopter intraocular lens was inserted in the bag. Approximately 0.7 mL of a mixture of triamcinolone, moxifloxacin, and vancomycin was injected subconjunctivally in the superior quadrant for infection and inflammation prophylaxis. I and A was used to evacuate the viscoelastic material. The eye was inflated to physiologic pressure using balanced salt solution and found to be watertight. The patient was taken to the operating room in good condition and given postop instructions. TD: 06/17/2017 10:16
== END 2017-06-17 08:00 | disposition home or self-care (01) ==
LOC: SDS 07:59
PROVIDERS: ATTEND Ophthalmology
PROC: 08RK3JZ Replacement of Left Lens with Synthetic Substitute, Percutaneous Approach (ICD-10-PCS; principal; 2017-06-17 09:30)
DX: H25.812 Combined forms of age-related cataract, left eye (principal); E78.00 Pure hypercholesterolemia, unspecified; Z79.82 Long term (current) use of aspirin
CPT/HCPCS: 66984; A9270; J3490; V2632

== ENCOUNTER 2020-09-10 10:54 | Outpatient (CLI) | payer MEDICARE, OTHER ==
[2020-09-10 18:02] LABS: BASOPHILS % (AUTO) 0.5 %; EOSINOPHILS # (AUTO) 0.1 10^3/uL (0.0-0.7); EOSINOPHILS % (AUTO) 1.3 %; HCT - HEMATOCRIT 48.1 % (42.0-52.0); HGB - HEMOGLOBIN 15.5 g/dL (14.0-18.0); LYMPHOCYTES # (AUTO) 2.2 10^3/uL (1.5-3.5); LYMPHOCYTES % (AUTO) 35.2 %; MEAN CORPUSCULAR HEMOGLOBIN 30.9 pg (27.0-31.0); MEAN CORPUSCULAR HGB CONC 32.2 g/dL (32.0-36.0); MEAN PLATELET VOLUME 9.7 fL (7.4-11.4); MONOCYTES # (AUTO) 0.3 10^3/uL (0.0-1.0); MONOCYTES % (AUTO) 5.2 %; NEUTROPHILS # (AUTO) 3.5 10^3/uL (1.5-6.6); NEUTROPHILS % (AUTO) 57.6 %; PLT - PLATELET COUNT 284 10^3/uL (130-450); RED BLOOD COUNT 5.01 10^6/uL (4.70-6.10); RED CELL DISTRIBUTION WIDTH 14.5 % (12.0-15.0); WHITE BLOOD COUNT 6.1 x10^3/uL (4.8-10.8)
[2020-09-10 18:22] LABS: MICROALBUM/CREATININE RATIO,UR 3.7 ug/mg (<30.0); MICROALBUMIN,URINE 0.9 mg/dL (0-300.0)
[2020-09-10 18:27] LABS: THYROID STIMULATING HORMONE 2.58 uIU/mL (0.34-5.60)
[2020-09-10 18:28] LABS: ALBUMIN 4.5 g/dL (3.2-5.5); ALBUMIN/GLOBULIN RATIO 1.5 (1.0-2.2); ALKALINE PHOSPHATASE 87 IU/L (42-121); ALT ALANINE AMINOTRANSFERASE 21 IU/L (10-60); AST ASPARTATE AMINOTRANSFERASE 21 IU/L (10-42); BILIRUBIN,TOTAL 0.7 mg/dL (0.2-1.0); BUN - BLOOD UREA NITROGEN 17 mg/dL (6-20); CALCIUM 9.2 mg/dL (8.5-10.3); CARBON DIOXIDE - CO2 27 mmol/L (21-32); CHLORIDE 103 mmol/L (101-111); CHOL/HDL RATIO 3.7 (<5.0); CHOLESTEROL 137 mg/dL; CREATININE 0.7 mg/dL (0.6-1.2); GFR - MDRD 111 (>89); GLUCOSE 107 mg/dL (70-100); HDL CHOLESTEROL 37 mg/dL; LDL CHOLESTEROL,CALCULATED 90 mg/dL; LDL/HDL RATIO 2.4 (<3.6); POTASSIUM 3.8 mmol/L (3.5-5.0); SODIUM 140 mmol/L (135-145); TOTAL PROTEIN 7.5 g/dL (6.7-8.2); TRIGLYCERIDES 51 mg/dL; VLDL CHOLESTEROL 10 mg/dL
[2020-09-10 20:26] LABS: ESTIMATED AVERAGE GLUCOSE 126 mg/dL (70-100)
== END 2020-09-10 23:59 | disposition home or self-care (01) ==
LOC: LAB.WCP 10:54
PROVIDERS: ATTEND Internal Medicine
DX: E78.5 Hyperlipidemia, unspecified (principal); Z86.79 Personal history of other diseases of the circulatory system; E11.9 Type 2 diabetes mellitus without complications; Z12.5 Encounter for screening for malignant neoplasm of prostate
CPT/HCPCS: 36415; 80053; 80061; 82043; 82570; 83036; 84443; 85025; G0103; 83721; 84153

== ENCOUNTER 2021-03-27 11:47 | Outpatient (CLI) | payer MEDICARE, OTHER ==
[2021-03-27 18:15] LABS: CALCIUM 9.4 mg/dL (8.5-10.3); CREATININE 0.7 mg/dL (0.6-1.2); POTASSIUM 4.2 mmol/L (3.5-5.0)
== END 2021-03-27 23:59 | disposition home or self-care (01) ==
LOC: LAB.WCP 11:47
PROVIDERS: ATTEND Internal Medicine
DX: I10 Essential (primary) hypertension (principal); R97.20 Elevated prostate specific antigen [PSA]
CPT/HCPCS: 36415; 80048; 84153

== ENCOUNTER 2021-10-01 10:48 | Outpatient (CLI) | payer MEDICARE, OTHER ==
[2021-10-01 17:45] LABS: BASOPHILS % (AUTO) 0.4 %; EOSINOPHILS # (AUTO) 0.1 10^3/uL (0.0-0.7); EOSINOPHILS % (AUTO) 0.9 %; HCT - HEMATOCRIT 43.9 % (42.0-52.0); HGB - HEMOGLOBIN 14.2 g/dL (14.0-18.0); LYMPHOCYTES # (AUTO) 2.1 10^3/uL (1.5-3.5); LYMPHOCYTES % (AUTO) 36.7 %; MEAN CORPUSCULAR HEMOGLOBIN 30.7 pg (27.0-31.0); MEAN CORPUSCULAR HGB CONC 32.3 g/dL (32.0-36.0); MEAN PLATELET VOLUME 9.6 fL (7.4-11.4); MONOCYTES # (AUTO) 0.3 10^3/uL (0.0-1.0); MONOCYTES % (AUTO) 5.1 %; NEUTROPHILS # (AUTO) 3.2 10^3/uL (1.5-6.6); NEUTROPHILS % (AUTO) 56.7 %; PLT - PLATELET COUNT 268 10^3/uL (130-450); RED BLOOD COUNT 4.62 10^6/uL (4.70-6.10); RED CELL DISTRIBUTION WIDTH 14.5 % (12.0-15.0); WHITE BLOOD COUNT 5.7 x10^3/uL (4.8-10.8)
[2021-10-01 18:09] LABS: ALBUMIN/GLOBULIN RATIO 1.4 (1.0-2.2); ALKALINE PHOSPHATASE 74 IU/L (42-121); ALT ALANINE AMINOTRANSFERASE 12 IU/L (10-60); AST ASPARTATE AMINOTRANSFERASE 18 IU/L (10-42); BILIRUBIN,TOTAL 0.8 mg/dL (0.2-1.0); BUN - BLOOD UREA NITROGEN 11 mg/dL (6-20); CALCIUM 8.8 mg/dL (8.5-10.3); CARBON DIOXIDE - CO2 27 mmol/L (21-32); CHLORIDE 106 mmol/L (101-111); CHOL/HDL RATIO 3.1 (<5.0); CHOLESTEROL 102 mg/dL; CREATININE 0.8 mg/dL (0.6-1.2); GFR - MDRD 95 (>89); GLUCOSE 96 mg/dL (70-100); HDL CHOLESTEROL 33 mg/dL; LDL CHOLESTEROL,CALCULATED 61 mg/dL; LDL/HDL RATIO 1.8 (<3.6); SODIUM 140 mmol/L (135-145); TOTAL PROTEIN 6.9 g/dL (6.7-8.2); TRIGLYCERIDES 42 mg/dL; VLDL CHOLESTEROL 8 mg/dL
[2021-10-01 18:10] LABS: CREATININE,URINE 196.8 mg/dL; MICROALBUM/CREATININE RATIO,UR 5.6 ug/mg (<30.0); MICROALBUMIN,URINE 1.1 mg/dL (0-300.0)
[2021-10-01 18:15] LABS: PSA FREE 0.79 ng/mL (0.16-2.81)
[2021-10-01 18:16] LABS: PSA TOTAL 4.72 ng/mL (0.000-2.000)
[2021-10-01 20:44] LABS: ESTIMATED AVERAGE GLUCOSE 126 mg/dL (70-100)
== END 2021-10-01 10:49 | disposition home or self-care (01) ==
LOC: LAB.N 10:48
PROVIDERS: ATTEND Internal Medicine
DX: I10 Essential (primary) hypertension (principal); E78.5 Hyperlipidemia, unspecified; R73.03 Prediabetes; R97.20 Elevated prostate specific antigen [PSA]
CPT/HCPCS: 36415; 80053; 80061; 82043; 82570; 83036; 83721; 84153; 84154; 85025

== ENCOUNTER 2022-03-26 11:03 | Outpatient (CLI) | payer MEDICARE, OTHER ==
[2022-03-26 18:17] LABS: BUN - BLOOD UREA NITROGEN 14 mg/dL (6-20); CARBON DIOXIDE - CO2 27 mmol/L (21-32); CHLORIDE 105 mmol/L (101-111); CHOL/HDL RATIO 3.2 (<5.0); CHOLESTEROL 120 mg/dL; CREATININE 0.7 mg/dL (0.6-1.2); GFR - MDRD 110 (>89); GLUCOSE 116 mg/dL (70-100); HDL CHOLESTEROL 37 mg/dL; LDL CHOLESTEROL,CALCULATED 73 mg/dL; POTASSIUM 4.2 mmol/L (3.5-5.0); SODIUM 141 mmol/L (135-145); TRIGLYCERIDES 52 mg/dL; VLDL CHOLESTEROL 10 mg/dL
[2022-03-26 18:25] LABS: PSA FREE 1.171 ng/mL (0.16-2.81)
[2022-03-26 18:26] LABS: PSA TOTAL 4.95 ng/mL (0.000-2.000)
[2022-03-26 20:48] LABS: ESTIMATED AVERAGE GLUCOSE 128 mg/dL (70-100); HEMOGLOBIN A1c% 6.1 % (4.27-6.07)
== END 2022-03-26 11:04 | disposition home or self-care (01) ==
LOC: LAB.N 11:03
PROVIDERS: ATTEND Internal Medicine
DX: I10 Essential (primary) hypertension (principal); E78.5 Hyperlipidemia, unspecified; R73.03 Prediabetes; R97.20 Elevated prostate specific antigen [PSA]
CPT/HCPCS: 36415; 80048; 80061; 83036; 83721; 84153; 84154

== ENCOUNTER 2022-09-29 09:04 | Outpatient (CLI) | payer MEDICARE, OTHER ==
[2022-09-29 12:16] LABS: ALBUMIN 3.9 g/dL (3.2-5.5); ALBUMIN/GLOBULIN RATIO 1.4 (1.0-2.2); ALKALINE PHOSPHATASE 73 IU/L (42-121); ALT ALANINE AMINOTRANSFERASE 14 IU/L (10-60); AST ASPARTATE AMINOTRANSFERASE 19 IU/L (10-42); BILIRUBIN,TOTAL 0.6 mg/dL (0.2-1.0); BUN - BLOOD UREA NITROGEN 10 mg/dL (6-20); CALCIUM 8.7 mg/dL (8.5-10.3); CARBON DIOXIDE - CO2 29 mmol/L (21-32); CHLORIDE 108 mmol/L (101-111); CHOL/HDL RATIO 2.8 (<5.0); CHOLESTEROL 99 mg/dL; CREATININE 0.7 mg/dL (0.6-1.2); GFR - MDRD 110 (>89); GLUCOSE 114 mg/dL (70-100); HDL CHOLESTEROL 35 mg/dL; LDL CHOLESTEROL,CALCULATED 53 mg/dL; LDL/HDL RATIO 1.5 (<3.6); POTASSIUM 3.7 mmol/L (3.5-5.0); SODIUM 142 mmol/L (135-145); TOTAL PROTEIN 6.7 g/dL (6.7-8.2); TRIGLYCERIDES 56 mg/dL; VLDL CHOLESTEROL 11 mg/dL
[2022-09-29 12:22] LABS: PSA FREE 0.903 ng/mL (0.16-2.81)
[2022-09-29 12:23] LABS: PSA TOTAL 5.171 ng/mL (0.000-2.000)
[2022-09-30 16:02] LABS: ESTIMATED AVERAGE GLUCOSE 123 mg/dL (70-100); HEMOGLOBIN A1c% 5.9 % (4.27-6.07)
== END 2022-09-29 09:05 | disposition home or self-care (01) ==
LOC: LAB.N 09:04
PROVIDERS: ATTEND Internal Medicine
DX: E78.5 Hyperlipidemia, unspecified (principal); R73.03 Prediabetes; R97.20 Elevated prostate specific antigen [PSA]
CPT/HCPCS: 36415; 80053; 80061; 83036; 83721; 84153; 84154

== ENCOUNTER 2022-11-02 18:25 | Emergency (ER) | payer MEDICARE, OTHER ==
--- NOTE | 2022-11-02 18:39 | ED Physician Documentation ---
History of Present Illness - Stated complaint Stated Complaint: HIGH BP - Chief complaint Chief Complaint: General - History obtained from History obtained from: Patient - Additonal information Additional information: 76-year-old male with a past medical history Of hypertension and prior stroke with right-sided deficits presents with concern about his blood pressure. He has been using a wrist cuff and noticed today that it has been elevated, in the 1 60-1 90 range systolically. This is abnormal for him. He is on lisinopril which she took this morning, typically has blood pressure well controlled. He has no symptoms with this, no headache or vision changes, no new neurologic changes, no chest pain or difficulty breathing, no abdominal pain nausea vomiting or diarrhea. He presented today due to concerns about his blood pressure Review of Systems Constitutional: reports: Reviewed and negative Cardiac: reports: Reviewed and negative Respiratory: reports: Reviewed and negative GI: reports: Reviewed and negative : reports: Reviewed and negative Skin: reports: Reviewed and negative Musculoskeletal: reports: Reviewed and negative Neurologic: reports: Reviewed and negative PD PAST MEDICAL HISTORY - Past Medical History Past Medical History: Yes Cardiovascular: Hypertension, High cholesterol, Other Respiratory: None Endocrine/Autoimmune: None GI: None : None HEENT: None Psych: None Musculoskeletal: None Derm: None - Past Surgical History Past Surgical History: No HEENT: Cataracts - Present Medications Home Medications: Ambulatory Orders Medication Instructions Recorded Confirmed Atorvastatin Calcium 80 mg PO DAILY 05/26/17 11/02/22 lisinopriL [Lisinopril] 5 mg PO DAILY 05/26/17 11/02/22 Aspirin 325 mg PO DAILY 06/17/17 11/02/22 Baclofen [Lioresal] 10 mg PO BID PRN 11/02/22 11/02/22 - Allergies Allergies/Adverse Reactions: Allergies Allergy/AdvReac Type Severity Reaction Status Date / Time No Known Drug Allergies Allergy Verified 11/02/22 18:28 - Social History Does the pt smoke?: Yes Smoking Status: Current every day smoker Does the pt drink ETOH?: No Does the pt have substance abuse?: No - POLST Patient has POLST: No POLST Status: DNR PD ED PE NORMAL - Vitals Vital signs reviewed: Yes - General General: Alert and oriented X 3, No acute distress, Well developed/nourished - HEENT HEENT: Atraumatic, Pharynx benign - Neck Neck: Supple, no meningeal sign, No JVD - Cardiac Cardiac: RRR, No murmur, No gallop, No rub, Strong equal pulses - Respiratory Respiratory: No respiratory distress, Clear bilaterally - Abdomen Abdomen: Normal bowel sounds, Soft, Non tender, Non distended - Derm Derm: Normal color, Warm and dry, No rash - Extremities Extremities: Other (Chronic right upper arm contraction) - Neuro Neuro: Alert and oriented X 3, Other (Chronic deficits from prior stroke, no acute neuro changes) Eye Opening: Spontaneous Motor: Obeys Commands Verbal: Oriented GCS Score: 15 - Psych Psych: Normal mood, Normal affect Results - Vitals Vitals: Vital Signs - 24 hr 11/02/22 11/02/22 18:29 19:47 Temperature 36.7 C 36.5 C Heart Rate 81 60 Respiratory 16 24 Rate Blood Pressure 112/85 H 130/88 H O2 Saturation 100 97 Oxygen O2 Source Room air - EKG (time done) No standard instances EKG releavant findings:: EKG personally interpreted by author of this note. Relevant findings are: Rate: Rate (enter#) (63) Rhythm: NSR [place]: Normal Intervals: Normal ID QRS: Normal Ischemia: Normal ST segments Computer interpretation: Agree with computer - Labs Labs: Laboratory Tests 11/02/22 11/02/22 11/02/22 18:55 18:55 18:55 WBC 5.8 RBC 4.25 L Hgb 12.9 L Hct 40.0 L MCV 94.1 H MCH 30.4 MCHC 32.3 RDW 14.3 Plt Count 227 MPV 9.2 Neut # (Auto) 2.8 Lymph # (Auto) 2.6 [place] # (Auto) 0.3 Eos # (Auto) 0.1 Baso # (Auto) 0.0 Absolute Nucleated RBC 0.00 Nucleated RBC % 0.0 Sodium 142 Potassium 3.8 Chloride 110 Carbon Dioxide 28 Anion Gap 4.0 L BUN 13 Creatinine 0.7 Estimated GFR (MDRD) 110 Glucose 102 H Calcium 8.1 L Troponin I High Sens 2.8 PD Medical Decision Making - ED course Complexity details: reviewed old records, reviewed results, re-evaluated patient, considered differential, d/w patient ED course: 76-year-old male presented with concerns about an elevated blood pressure. I reviewed the data from his wrist cuff and he had a couple blood pressures in the 190s over 80 range or thereabouts, no higher, today though they went anywhere from 120s over 60s to 190s over 80s. On arrival here, patient's blood pressure is is within normal limits. Follow-up blood pressures occasionally elevated but generally stable here. He has no acute neurologic changes, his EKG shows normal sinus rhythm with no acute ischemic changes and his labs are stable. I discussed with patient that at this time, his blood pressure appears stable, his cuff may need to be recalibrated but it would also be a good idea to follow-up with his primary doctor within the next week or so and have his blood pressure checked in the clinic So that if it is routinely elevated they may adjust his blood pressure medication. Patient is stable for discharge home at this time, return precautions reviewed if he develop new or worsening symptoms. Departure - Departure Disposition: 01 Home, Self Care Clinical Impression: Hypertension Qualifiers: Hypertension type: unspecified Qualified Code(s): I10 - Essential (primary) hypertension Condition: Good Instructions: ED HTN Established Comments: Your blood pressure here has been normal. It may be that your cuff at home is getting old, sometimes and needs to be replaced or recalibrated. Your labs here are also stable and your EKG is normal. Please continue follow-up with your primary doctor in the next week or so to recheck her blood pressure and continue your current blood pressure medications. Discharge Date/Time: 11/02/22 19:47
[2022-11-02 19:01] LABS: BASOPHILS % (AUTO) 0.5 %; EOSINOPHILS # (AUTO) 0.1 10^3/uL (0.0-0.7); HGB - HEMOGLOBIN 12.9 g/dL (14.0-18.0); LYMPHOCYTES # (AUTO) 2.6 10^3/uL (1.5-3.5); LYMPHOCYTES % (AUTO) 45.3 %; MEAN CORPUSCULAR HEMOGLOBIN 30.4 pg (27.0-31.0); MEAN CORPUSCULAR HGB CONC 32.3 g/dL (32.0-36.0); MEAN CORPUSCULAR VOLUME 94.1 fL (80.0-94.0); MEAN PLATELET VOLUME 9.2 fL (7.4-11.4); MONOCYTES # (AUTO) 0.3 10^3/uL (0.0-1.0); MONOCYTES % (AUTO) 5.4 %; NEUTROPHILS # (AUTO) 2.8 10^3/uL (1.5-6.6); NEUTROPHILS % (AUTO) 47.6 %; PLT - PLATELET COUNT 227 10^3/uL (130-450); RED BLOOD COUNT 4.25 10^6/uL (4.70-6.10); RED CELL DISTRIBUTION WIDTH 14.3 % (12.0-15.0); WHITE BLOOD COUNT 5.8 x10^3/uL (4.8-10.8)
[2022-11-02 19:08] LABS: CALCIUM 8.1 mg/dL (8.5-10.3); CREATININE 0.7 mg/dL (0.6-1.2); POTASSIUM 3.8 mmol/L (3.5-5.0)
[2022-11-02 19:50] VITALS: BP 130/88
== END 2022-11-02 19:47 | disposition home or self-care (01) ==
LOC: ED 18:25
DX: I10 Essential (primary) hypertension (principal); F17.200 Nicotine dependence, unspecified, uncomplicated; Z66 Do not resuscitate
CPT/HCPCS: 36415; 80048; 84484; 85025; 93005; 99283; 99284

== ENCOUNTER 2023-07-06 10:50 | Outpatient (CLI) | payer MEDICARE, OTHER ==
[2023-07-06 18:27] LABS: CALCIUM 9.4 mg/dL (8.5-10.3); CREATININE 0.8 mg/dL (0.6-1.3); POTASSIUM 4.3 mmol/L (3.5-4.5)
[2023-07-06 22:01] LABS: ESTIMATED AVERAGE GLUCOSE 128 mg/dL (70-100); HEMOGLOBIN A1c% 6.1 % (4.27-6.07)
== END 2023-07-06 10:51 | disposition home or self-care (01) ==
LOC: LAB.N 10:50
PROVIDERS: ATTEND Internal Medicine
DX: I10 Essential (primary) hypertension (principal); R73.03 Prediabetes; R97.20 Elevated prostate specific antigen [PSA]
CPT/HCPCS: 36415; 80048; 83036; 84153; 84154

== ENCOUNTER 2023-07-29 11:34 | Outpatient (CLI) | payer MEDICARE, OTHER ==
--- NOTE | 2023-07-29 16:51 | CT Report ---
PROCEDURE: Lung Cancer Screen INDICATIONS: SMOKER TECHNIQUE: A CT scan of the chest was performed. Intravenous contrast media was not administered. Images were re corded and evaluated at appropriate window settings. Reformats: axial MIP of the chest, coronal and s agittal. For radiation dose reduction, the following was used: automated exposure control, adjustment of mA and/or kV according to patient size. COMPARISON: None. FINDINGS: Image quality: Excellent. Prior cancer history: None given Lungs and pleura: No pleural effusions. No pneumothorax. Moderate centrilobular emphysema. Biapical pleural-parenchymal scarring. Calcified granuloma, anterior subpleural location of right middle lobe. Calcified granuloma, periphery of right upper lobe, image 32/4. 3 mm noncalcified right upper lobe n odule, image 31/4. 4 mm pulmonary nodule extending to the pleura, right upper lobe, image 29/4. 3 mm noncalcified pulmonary nodule, left upper lobe, image 24/4. Mediastinum: Heart size is normal. No pericardial effusion. No large vessel abnormality. No mediastin al adenopathy by size criteria. Calcified mediastinal lymph nodes are consistent with chronic granul omatous disease. Mild coronary artery calcifications. Chest wall and lower neck: Thyroid is unremarkable. No axillary or supraclavicular adenopathy by size . Bones: No aggressive osseous abnormality. Upper Abdomen: Unremarkable. IMPRESSION: Chronic granulomatous disease. Additionally, there are 3 small noncalcified pulmonary nod ules noted. Moderate centrilobular emphysema. Lung RAD: 2 - Benign. Recommendation: Continue annual screening in 12 Months with LDCT Non-Lung Significant Findings: None. Reviewed by: Bon Hazel MD on 07/29/2023 4:50 PM PDT Approved by: Bon Hazel MD on 07/29/2023 4:50 PM PDT Station ID: [id number]
== END 2023-07-29 11:35 | disposition home or self-care (01) ==
LOC: DI 11:34
PROVIDERS: ATTEND Internal Medicine
DX: Z12.2 Encounter for screening for malignant neoplasm of respiratory organs (principal); R91.8 Other nonspecific abnormal finding of lung field; J43.2 Centrilobular emphysema; F17.210 Nicotine dependence, cigarettes, uncomplicated; J84.10 Pulmonary fibrosis, unspecified

== ENCOUNTER 2023-12-30 10:11 | Outpatient (CLI) | payer MEDICARE, OTHER ==
[2023-12-30 12:46] LABS: ESTIMATED AVERAGE GLUCOSE 123 mg/dL (70-100); HEMOGLOBIN A1c% 5.9 % (4.27-6.07)
[2023-12-30 12:47] LABS: BASOPHILS % (AUTO) 0.3 %; EOSINOPHILS % (AUTO) 0.3 %; HCT - HEMATOCRIT 44.9 % (42.0-52.0); HGB - HEMOGLOBIN 14.3 g/dL (14.0-18.0); LYMPHOCYTES # (AUTO) 2.4 10^3/uL (1.5-3.5); LYMPHOCYTES % (AUTO) 37.2 %; MEAN CORPUSCULAR HGB CONC 31.8 g/dL (32.0-36.0); MEAN CORPUSCULAR VOLUME 94.3 fL (80.0-94.0); MEAN PLATELET VOLUME 9.6 fL (7.4-11.4); MONOCYTES # (AUTO) 0.5 10^3/uL (0.0-1.0); NEUTROPHILS # (AUTO) 3.5 10^3/uL (1.5-6.6); NEUTROPHILS % (AUTO) 54.9 %; PLT - PLATELET COUNT 282 10^3/uL (130-450); RED BLOOD COUNT 4.76 10^6/uL (4.70-6.10); WHITE BLOOD COUNT 6.4 x10^3/uL (4.8-10.8)
[2023-12-30 13:15] LABS: BILIRUBIN,URINE SMALL (NEGATIVE); CLARITY,URINE CLEAR (CLEAR); GLUCOSE, URINE (UA) NEGATIVE (NEGATIVE); KETONES,URINE (UA) NEGATIVE (NEGATIVE); LEUKOCYTE ESTERASE, URINE NEGATIVE (NEGATIVE); NITRITE,URINE NEGATIVE (NEGATIVE); OCCULT BLOOD,URINE NEGATIVE (NEGATIVE); PH,URINE 5.5 PH (5.0-7.5); PROTEIN,URINE NEGATIVE (NEGATIVE); UROBILINOGEN,URINE 0.2 (NORMAL) E.U./dL (NORMAL)
[2023-12-30 13:18] LABS: ALBUMIN 4.3 g/dL (3.2-5.5); ALBUMIN/GLOBULIN RATIO 1.5 (1.0-2.2); ALKALINE PHOSPHATASE 85 IU/L (42-121); ALT ALANINE AMINOTRANSFERASE 11 IU/L (10-60); AST ASPARTATE AMINOTRANSFERASE 16 IU/L (10-42); BILIRUBIN,TOTAL 0.7 mg/dL (0.2-1.0); BUN - BLOOD UREA NITROGEN 14 mg/dL (6-20); CALCIUM 9.3 mg/dL (8.5-10.3); CARBON DIOXIDE - CO2 29 mmol/L (21-32); CHLORIDE 104 mmol/L (101-111); CHOLESTEROL 106 mg/dL; CREATININE 0.8 mg/dL (0.6-1.3); GFR - MDRD 94 (>89); GLUCOSE 106 mg/dL (74-104); HDL CHOLESTEROL 35 mg/dL; LDL CHOLESTEROL,CALCULATED 60 mg/dL; LDL/HDL RATIO 1.7 (<3.6); POTASSIUM 3.7 mmol/L (3.5-4.5); SODIUM 139 mmol/L (135-145); TOTAL PROTEIN 7.2 g/dL (6.4-8.9); TRIGLYCERIDES 56 mg/dL; VLDL CHOLESTEROL 11 mg/dL
[2023-12-30 13:19] LABS: RBC,URINE 0-5 /HPF (0-5); WBC,URINE 0-3 /HPF (0-3)
[2023-12-30 13:20] LABS: BACTERIA,URINE Rare /HPF (None Seen); SQUAMOUS EPITHELIAL CELL,UR NONE SEEN (<= Few)
== END 2023-12-30 10:12 | disposition home or self-care (01) ==
LOC: LAB.N 10:11
PROVIDERS: ATTEND Internal Medicine
DX: E78.5 Hyperlipidemia, unspecified (principal); R97.20 Elevated prostate specific antigen [PSA]; R73.03 Prediabetes; I10 Essential (primary) hypertension
CPT/HCPCS: 36415; 80053; 80061; 81001; 83036; 83721; 84153; 84154; 85025; 87086